=== PATIENT | male | born 1990 ===

== ENCOUNTER 2017-12-03 05:06 | Emergency (ER) | payer SELFPAY ==
[~2017-12-03] VITALS: Ht 185.4 cm; Wt 72.6 kg
== END 2017-12-03 05:57 | disposition home or self-care (01) ==
LOC: ER 05:06
DX: T59.891A Toxic effect of other specified gases, fumes and vapors, accidental (unintentional), initial encounter (principal); F41.9 Anxiety disorder, unspecified
CPT/HCPCS: 99282